=== PATIENT | male | born 1965 | race Caucasian/White ===

== ENCOUNTER 2017-01-30 20:29 | Emergency (ER) | payer OTHER ==
[2017-01-30] MEDS ORDERED: cloNIDine HCL 0.1 MG TAB PO STA (20:48)
--- NOTE | 2017-01-30 20:55 | ED ---
General Adult HPI - General Source: patient, family, RN notes reviewed Mode of arrival: ambulatory Limitations: no limitations <Noble Jaime - Last Filed: 01/30/17 20:52> <Getachew Fields - Last Filed: 01/30/17 21:23> - General Chief complaint: Headache Stated complaint: HBP Time Seen by Provider: 01/30/17 20:37 - History of Present Illness Initial comments: Chief complaint and history of present illness this is a 51-year-old male here to complaints of elevated blood pressure. At home was 158 over 1 await. Here was 186/92. Patient reports she does not have high blood pressure and then having mild headaches on again off again for the past week. 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 Otherwise no complaints of any neuro deficits or chest pain or palpitations. (Noble Jaime) - Related Data Home Medications Medication Instructions Recorded Confirmed metFORMIN HCL 1 tab PO DAILY 01/30/17 01/30/17 Previous Rx's Medication Instructions Recorded Lisinopril [Zestril] 5 mg PO DAILY #15 tab 01/30/17 Allergies Allergy/AdvReac Type Severity Reaction Status Date / Time No Known Allergies Allergy Verified 01/30/17 20:31 Review of Systems ROS Other: All systems not noted in ROS Statement are negative. <Noble Jaime - Last Filed: 01/30/17 20:52> ROS Other: All systems not noted in ROS Statement are negative. <Getachew Fields - Last Filed: 01/30/17 21:23> ROS Statement: Those systems with pertinent positive or pertinent negative responses have been documented in the HPI. Review of systems not complaining of visual acuity changes or blurred vision. Mild headache that comes and goes. No stiff neck no chest pain no shortness of breath no GI/ problems. No nausea no vomiting no neuro deficits. All systems were reviewed. Past medical problems significant for non-insulin- dependent diabetes mellitus, surgeries appendectomy. Family history mother during surgery on her carotids. Patient denies ALLERGIES nonsmoker nondrinker. Patient weighs 300 pounds. (Noble Jaime) Past Medical History Past Medical History: Diabetes Mellitus History of Any Multi-Drug Resistant Organisms: None Reported Past Surgical History: Appendectomy Past Psychological History: No Psychological Hx Reported Smoking Status: Never smoker Past Alcohol Use History: None Reported Past Drug Use History: None Reported <Noble Jaime - Last Filed: 01/30/17 20:52> General Exam Limitations: no limitations <Noble Jaime - Last Filed: 01/30/17 20:52> <MaggiesandeepGetachew - Last Filed: 01/30/17 21:23> - General Exam Comments Initial Comments: General: The patient is awake and alert, in no distress, and does not appear acutely ill. He is on again off again headache but no nausea no vomiting no blurred vision. Vital signs show temperature 98.8 pulse 73 respiratory rate 18 pulse ox 97% room air blood pressure 186/92 Eye: Pupils are equal, round and reactive to light, extra-ocular movements are intact ; there is normal conjunctiva bilaterally. No signs of icterus. Ears, nose, mouth and throat: There are moist mucous membranes and no oral lesions. Neck: The neck is supple, there is no tenderness no anterior cervical lymphadenopathy , thyroid not enlarged. No neck pain. Cardiovascular: There is a regular rate and rhythm. No murmur, rub or gallop is appreciated. Respiratory: Lungs are clear to auscultation, respirations are non-labored, breath sounds are equal. No wheezes, stridor, rales, or rhonchi. Gastrointestinal: Soft, non-distended, non-tender abdomen without masses or organomegaly noted. There is no rebound or guarding present. No CVA tenderness. Bowel sounds are unremarkable. A she had a spot that he was concerned about when he laid over on his left side. It appears to be a left floating rib. Similar floating rib can be palpated on the right side. Back: There is no tenderness to palpation in the midline. There is no obvious deformity. No rashes noted. Musculoskeletal: Normal ROM, no tenderness, Neurological: Neurological intact no complaints of any focal or lateralizing findings. Skin: Skin is warm and dry and no rashes or lesions are noted. (Noble Jaime) Disposition <Noble Jaime - Last Filed: 01/30/17 20:52> <Getachew Fields - Last Filed: 01/30/17 21:23> Clinical Impression: Hypertension Disposition: HOME SELF-CARE Condition: Good Instructions: Hypertension (ED) Prescriptions: Lisinopril [Zestril] 5 mg PO DAILY #15 tab Referrals: Mychal Almeida DO [Primary Care Provider] - 1-2 days
[2017-01-30 21:32] VITALS: BP 129/70; PULSE 76; RESP 18; TEMP 98
== END 2017-01-30 21:31 | disposition home or self-care (01) ==
LOC: EC 20:29
DX: I10 Essential (primary) hypertension (principal); R51 Headache; E11.9 Type 2 diabetes mellitus without complications; Z79.84 Long term (current) use of oral hypoglycemic drugs
CPT/HCPCS: 99283

== ENCOUNTER → 2019-10-06 | Outpatient (CLI) | payer BC ==
--- NOTE | 2019-10-06 11:45 | XR ---
EXAMINATION TYPE: XR shoulder complete LT DATE OF EXAM: 10/06/2019 COMPARISON: NONE HISTORY: Pain TECHNIQUE: Three views are submitted. FINDINGS: The osseous structures are intact. There is no acute fracture or dislocation. The AC joint arthropa thy noted. IMPRESSION: 1. Severe AC joint arthropathy with spurring. If there is concern for rotator cuff disease correlate with MRI.
== END | disposition home or self-care (01) ==
LOC: RADXRYALE 11:28
PROVIDERS: ATTEND Physician Assistant Medical
DX: M19.012 Primary osteoarthritis, left shoulder (principal)

== ENCOUNTER → 2019-10-11 | Outpatient (CLI) | payer BC | END | disposition home or self-care (01) | LOC: RADMRIMAIN 10:23 | PROVIDERS: ATTEND Physician Assistant Medical | DX: Z53.9 Procedure and treatment not carried out, unspecified reason (principal) ==

== ENCOUNTER → 2021-02-11 | Outpatient (CLI) | payer BC ==
--- NOTE | 2021-02-11 13:04 | XR ---
Right knee HISTORY: Lateral knee pain for 1 week, right knee pain, meniscus tear 3 views of the right knee Suprapatellar increased density suggests small joint effusion. There is tricompartmental marginal spu rring, joint space loss. Alignment and bone mineralization are maintained. No fracture or dislocation . impression: Osteoarthritis.
== END | disposition home or self-care (01) ==
LOC: RADXRYALE 10:29
PROVIDERS: ATTEND Family Medicine
DX: M17.11 Unilateral primary osteoarthritis, right knee (principal)

== ENCOUNTER 2021-08-11 18:23 | Observation (INO) | payer BC ==
[2021-08-11 20:30] LABS: Basophils % (A) 0 %; Eosinophils # (A) 0.3 k/uL (0-0.7); Eosinophils % (A) 2 %; HCT 44.6 % (39.0-53.0); HGB 14.7 gm/dL (13.0-17.5); Lymphocytes # (A) 2.4 k/uL (1.0-4.8); Lymphocytes % (A) 20 %; MCH 28.8 pg (25.0-35.0); MCV 87.3 fL (80.0-100.0); Mean Platelet Volume 8.5; Monocytes # (A) 0.7 k/uL (0-1.0); Monocytes % (A) 6 %; Neutrophils # (A) 8.5 k/uL (1.3-7.7); Neutrophils % (A) 71 %; Platelet Count 296 k/uL (150-450); RBC 5.11 m/uL (4.30-5.90); RDW 13.1 % (11.5-15.5)
[2021-08-11 20:38] LABS: Amorphous Sediment,Urine Rare /hpf; Appearance,Urine Turbid (Clear); Bacteria,Urine Rare /hpf; Bilirubin,Urine 1+ (Negative); Blood,Urine Negative (Negative); Color,Urine Dark Yellow; Glucose,Urine (UA) 1+ (Negative); Hyaline Casts,Urine 210 /lpf (0-2); Ketones,Urine 1+ (Negative); Leukocyte Esterase,Urine Trace (Negative); Mucus,Urine Many /hpf; Nitrite,Urine Negative (Negative); PH, Urine 5.5 (5.0-8.0); Protein,Urine 3+ (Negative); RBC,Urine 4 /hpf (0-5); Specific Gravity,Urine 1.029 (1.001-1.035); Squamous Epithelial Cell,Urine 12 /hpf (0-4); WBC,Urine 12 /hpf (0-5)
[2021-08-11 20:43] LABS: Albumin 4.3 g/dL (3.5-5.0); Calcium 9.8 mg/dL (8.4-10.2); Total Bilirubin 0.6 mg/dL (0.2-1.3); Total Protein 7.6 g/dL (6.3-8.2)
--- NOTE | 2021-08-11 22:35 | ED ---
General Adult HPI - General Chief complaint: Abdominal Pain Stated complaint: COVID+ Time Seen by Provider: 08/11/21 21:51 Source: patient, EMS, RN notes reviewed, old records reviewed Mode of arrival: EMS Limitations: no limitations - History of Present Illness Initial comments: 56-year-old male presenting for evaluation of abdominal discomfort. Patient states that he recently tested positive for coronavirus. He tested positive on August 06. He has no cough or dyspnea. He was not vaccinated against coronavirus. He's also states that he started a new diabetic medication which is an injectable and states that he has had this leg abdominal pain since the onset of this new medication. No fever. Pain is predominantly epigastric and right upper quadrant. He states it is improved with drinking or eating. Additionally the patient had just lost his fiance to coronavirus and is been under a great deal of stress. Patient had contacted his primary care physician who had requested that the patient presented to the emergency department for evaluation of epigastric pain and concern for a cardiac cause of his pain. - Related Data Home Medications Medication Instructions Recorded Confirmed Ascorbic Acid [Vitamin C] 1,000 mg PO DAILY 08/12/21 08/12/21 Pioglitazone [Actos] 45 mg PO DAILY 08/12/21 08/12/21 Semaglutide [Ozempic] 1 mg SQ WE 08/12/21 08/12/21 lisinopriL [Zestril] 20 mg PO BID 08/12/21 08/12/21 metFORMIN HCL [Glucophage] 1,000 mg PO BID 08/12/21 08/12/21 Previous Rx's Medication Instructions Recorded Cephalexin [Keflex] 500 mg PO Q12HR #14 cap 08/11/21 Omeprazole [PriLOSEC] 20 mg PO AC-BID 30 Days #60 cap 08/11/21 Allergies Allergy/AdvReac Type Severity Reaction Status Date / Time No Known Allergies Allergy Verified 08/12/21 07:15 Review of Systems ROS Statement: Those systems with pertinent positive or pertinent negative responses have been documented in the HPI. ROS Other: All systems not noted in ROS Statement are negative. Past Medical History Past Medical History: Diabetes Mellitus History of Any Multi-Drug Resistant Organisms: None Reported Past Surgical History: Appendectomy Past Psychological History: No Psychological Hx Reported Smoking Status: Never smoker Past Alcohol Use History: None Reported Past Drug Use History: None Reported General Exam Limitations: no limitations General appearance: alert, in no apparent distress Head exam: Present: atraumatic, normocephalic Eye exam: Present: normal appearance, PERRL ENT exam: Present: normal exam Neck exam: Present: normal inspection. Absent: tenderness, meningismus Respiratory exam: Present: normal lung sounds bilaterally. Absent: respiratory distress, wheezes Cardiovascular Exam: Present: regular rate, normal rhythm GI/Abdominal exam: Present: soft. Absent: distended, tenderness, guarding, rebound Extremities exam: Present: normal inspection, normal capillary refill. Absent: pedal edema Neurological exam: Present: alert, oriented X3, CN II-XII intact Psychiatric exam: Present: normal affect, normal mood Skin exam: Present: warm, dry, intact. Absent: cyanosis, diaphoretic Course Vital Signs 08/11/21 08/11/21 08/12/21 19:59 21:56 01:12 Temperature 98.2 F Pulse Rate 89 82 73 Respiratory 18 18 18 Rate Blood Pressure 156/81 131/82 120/67 O2 Sat by Pulse 96 96 98 Oximetry 08/12/21 08/12/21 08/12/21 02:30 06:00 07:05 Temperature Pulse Rate 81 64 69 Respiratory 18 18 18 Rate Blood Pressure 126/66 130/79 130/72 O2 Sat by Pulse 95 96 95 Oximetry 08/12/21 08/12/21 09:27 18:53 Temperature 98.7 F Pulse Rate 80 74 Respiratory 16 16 Rate Blood Pressure 130/83 136/74 O2 Sat by Pulse 96 95 Oximetry - Reevaluation(s) Reevaluation #1: 08/11/21 22:56 Patient was sent in by his primary care for evaluation. EKG Findings - EKG Comments: EKG Findings:: EKG: Normal sinus rhythm, right bundle-branch block rate of 76, OR interval 154, QRS duration 144, QTC 477, no ST segment elevation, no old for comparison. Medical Decision Making - Medical Decision Making 56-year-old male presenting with chief complaint of epigastric abdominal pain Patient is nontender on exam no rebound or guarding, he's had no vomiting or diarrhea. No fever. He is Flores virus positive. Patient does not have any chest pain or dyspnea. I did recommend that the patient receive antibiotic infusion this is administered in the emergency department. He has a mild leukocytosis, stable hemoglobin, normal electrolytes, normal liver enzymes. Urinalysis is showing some leukocyte Estrace and bacteria this is a contaminated specimen, culture pending. Patient's EKG shows a right bundle branch block without old for comparison. Given the recommendation by his primary care physician for evaluation of this epigastric pain and the possibility of anginal equivalent I did perform troponin testing which was minimally elevated at 0.047. Patient does not have any active chest pain. This level will be trended. He will be kept in observation awaiting trended troponin level. - Lab Data Result diagrams: 08/11/21 20:10 08/11/21 20:10 Lab Results 08/11/21 08/11/21 08/11/21 Range/Units 20:10 20:10 20:10 WBC 12.0 H (3.8-10.6) k/uL RBC 5.11 (4.30-5.90) m/uL Hgb 14.7 (13.0-17.5) gm/dL Hct 44.6 (39.0-53.0) % MCV 87.3 (80.0-100.0) fL MCH 28.8 (25.0-35.0) pg MCHC 33.0 (31.0-37.0) g/dL RDW 13.1 (11.5-15.5) % Plt Count 296 (150-450) k/uL MPV 8.5 Neutrophils % 71 % Lymphocytes % 20 % Monocytes % 6 % Eosinophils % 2 % Basophils % 0 % Neutrophils # 8.5 H (1.3-7.7) k/uL Lymphocytes # 2.4 (1.0-4.8) k/uL Monocytes # 0.7 (0-1.0) k/uL Eosinophils # 0.3 (0-0.7) k/uL Basophils # 0.0 (0-0.2) k/uL Sodium 141 (137-145) mmol/L Potassium 4.0 (3.5-5.1) mmol/L Chloride 103 (98-107) mmol/L Carbon Dioxide 25 (22-30) mmol/L Anion Gap 13 mmol/L BUN 18 (9-20) mg/dL Creatinine 1.25 (0.66-1.25) mg/dL Est GFR (CKD-EPI)AfAm 75 (>60 ml/min/1.73 sqM) Est GFR (CKD-EPI)NonAf 65 (>60 ml/min/1.73 sqM) Glucose 140 H (74-99) mg/dL Calcium 9.8 (8.4-10.2) mg/dL Total Bilirubin 0.6 (0.2-1.3) mg/dL AST 27 (17-59) U/L ALT 23 (4-49) U/L Alkaline Phosphatase 52 (38-126) U/L Troponin I (0.000-0.034) ng/mL Total Protein 7.6 (6.3-8.2) g/dL Albumin 4.3 (3.5-5.0) g/dL Urine Color Dark Yellow Urine Appearance Turbid (Clear) Urine pH 5.5 (5.0-8.0) Ur Specific [place] 1.029 (1.001-1.035) Urine Protein 3+ H (Negative) Urine Glucose (UA) 1+ H (Negative) Urine Ketones 1+ H (Negative) Urine Blood Negative (Negative) Urine Nitrite Negative (Negative) Urine Bilirubin 1+ H (Negative) Urine Urobilinogen 3.0 (<2.0) mg/dL Ur Leukocyte Esterase Trace H (Negative) Urine RBC 4 (0-5) /hpf Urine WBC 12 H (0-5) /hpf Urine WBC Clumps Rare H (None) /hpf Ur Squamous Epith Cells 12 H (0-4) /hpf Amorphous Sediment Rare H (None) /hpf Urine Bacteria Rare H (None) /hpf Hyaline Casts 210 H (0-2) /lpf Urine Mucus Many H (None) /hpf 08/11/21 Range/Units 20:10 WBC (3.8-10.6) k/uL RBC (4.30-5.90) m/uL Hgb (13.0-17.5) gm/dL Hct (39.0-53.0) % MCV (80.0-100.0) fL MCH (25.0-35.0) pg MCHC (31.0-37.0) g/dL RDW (11.5-15.5) % Plt Count (150-450) k/uL MPV Neutrophils % % Lymphocytes % % Monocytes % % Eosinophils % % Basophils % % Neutrophils # (1.3-7.7) k/uL Lymphocytes # (1.0-4.8) k/uL Monocytes # (0-1.0) k/uL Eosinophils # (0-0.7) k/uL Basophils # (0-0.2) k/uL Sodium (137-145) mmol/L Potassium (3.5-5.1) mmol/L Chloride (98-107) mmol/L Carbon Dioxide (22-30) mmol/L Anion Gap mmol/L BUN (9-20) mg/dL Creatinine (0.66-1.25) mg/dL Est GFR (CKD-EPI)AfAm (>60 ml/min/1.73 sqM) Est GFR (CKD-EPI)NonAf (>60 ml/min/1.73 sqM) Glucose (74-99) mg/dL Calcium (8.4-10.2) mg/dL Total Bilirubin (0.2-1.3) mg/dL AST (17-59) U/L ALT (4-49) U/L Alkaline Phosphatase (38-126) U/L Troponin I 0.047 H* (0.000-0.034) ng/mL Total Protein (6.3-8.2) g/dL Albumin (3.5-5.0) g/dL Urine Color Urine Appearance (Clear) Urine pH (5.0-8.0) Ur Specific [place] (1.001-1.035) Urine Protein (Negative) Urine Glucose (UA) (Negative) Urine Ketones (Negative) Urine Blood (Negative) Urine Nitrite (Negative) Urine Bilirubin (Negative) Urine Urobilinogen (<2.0) mg/dL Ur Leukocyte Esterase (Negative) Urine RBC (0-5) /hpf Urine WBC (0-5) /hpf Urine WBC Clumps (None) /hpf Ur Squamous Epith Cells (0-4) /hpf Amorphous Sediment (None) /hpf Urine Bacteria (None) /hpf Hyaline Casts (0-2) /lpf Urine Mucus (None) /hpf Disposition Clinical Impression: COVID-19, Elevated troponin I level Disposition: Left Against Medical Advice Condition: Stable Is patient prescribed a controlled substance at d/c from ED?: No Decision to Admit Reason: Admit from EC Decision Date: 08/11/21 Decision Time: 23:42
[2021-08-11] MEDS ORDERED: SODIUM CHLORIDE 0.9% 500 ML 500 ML IV ONE (23:00)
[2021-08-11] MEDS ORDERED: SODIUM CHLORIDE 0.9% 50 ML IVPB ONE (23:15)
[2021-08-11] MEDS ORDERED: ASPIRIN 325 MG TAB PO STA (23:39)
[2021-08-11] MEDS ORDERED: NALOXONE 0.4 MG/ML 1 ML VIAL IV PRN (23:40)
[2021-08-11] MEDS ORDERED: ACETAMINOPHEN TAB 325 MG TAB PO PRN (23:40)
[2021-08-11] MEDS ORDERED: SODIUM CHLORIDE 0.9% 1,000 ML IV SCH (23:45)
[2021-08-11] MEDS ORDERED: BAMLANIVIMAB (EUA) 700 MG, ETESEVIMAB (EUA) 1,400 MG in SODIUM CHLORIDE 0.9% 50 ML IVPB ONE (23:45)
[2021-08-12] MEDS ORDERED: lisinopriL 20 MG TAB PO SCH (09:00)
[2021-08-12] MEDS ORDERED: ASPIRIN 81 MG PO SCH (09:15)
[2021-08-12 09:27] VITALS: RESP 16
--- NOTE | 2021-08-12 12:03 | P.CRDCN ---
History of Present Illness Consult date: 08/12/21 History of present illness: CHIEF COMPLAINT: elevated troponin HISTORY OF PRESENT ILLNESS: This is a 56 year old male with a past medical history significant for diabetes and hypertension. 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 We have been asked to see the patient in consultation for abnormal troponins. The patient presented to the hospital with a chief complaint of abdominal pain after starting a new diabetes medication. He was recently diagnosed with Covid. Patients vital signs are stable. He is on room air with oxygen saturations greater than 92%. Blood pressure 130/83. Telemetry reveals sinus rhythm with heart rate in the 80s. EKG reveals sinus mechanism with right bundle-branch block. Current home cardiac medications include lisinopril 20 mg twice a day. REVIEW OF SYSTEMS: Thorough review of systems not completed secondary to limited evaluation/examination due to Covid19 PHYSICAL EXAM: Thorough physical exam not completed secondary to limited evaluation/examination due to Covid19 ASSESSMENT: Acute Covid 19 Abnormal troponins, not suggestive of ACS Abdominal pain Hypertension Diabetes PLAN: Obtain 2D echo to assess cardiac structure and function Resume home cardiac medications Aspirin 81 mg daily Patient may follow up on an outpatient basis after he recovers from Covid Nurse practitioner note has been reviewed by physician. Signing provider agrees with the documented findings, assessment, and plan of care. Past Medical History Past Medical History: Diabetes Mellitus History of Any Multi-Drug Resistant Organisms: None Reported Past Surgical History: Appendectomy Past Psychological History: No Psychological Hx Reported Smoking Status: Never smoker Past Alcohol Use History: None Reported Past Drug Use History: None Reported Medications and Allergies Home Medications Medication Instructions Recorded Confirmed Type Cephalexin [Keflex] 500 mg PO Q12HR #14 cap 08/11/21 Rx Omeprazole [PriLOSEC] 20 mg PO AC-BID 30 Days #60 cap 08/11/21 Rx Ascorbic Acid [Vitamin C] 1,000 mg PO DAILY 08/12/21 08/12/21 History Pioglitazone [Actos] 45 mg PO DAILY 08/12/21 08/12/21 History Semaglutide [Ozempic] 1 mg SQ WE 08/12/21 08/12/21 History lisinopriL [Zestril] 20 mg PO BID 08/12/21 08/12/21 History metFORMIN HCL [Glucophage] 1,000 mg PO BID 08/12/21 08/12/21 History Allergies Allergy/AdvReac Type Severity Reaction Status Date / Time No Known Allergies Allergy Verified 08/12/21 07:15 Physical Exam Vitals: Vital Signs Temp Pulse Resp BP Pulse Ox 08/12/21 09:27 80 16 130/83 96 08/12/21 07:05 69 18 130/72 95 08/12/21 06:00 64 18 130/79 96 08/12/21 02:30 81 18 126/66 95 08/12/21 01:12 73 18 120/67 98 08/11/21 21:56 82 18 131/82 96 08/11/21 19:59 98.2 F 89 18 156/81 96 Intake and Output 08/11/21 08/12/21 08/12/21 22:59 06:59 14:59 Other: Weight 142.882 kg Results 08/11/21 20:10 08/11/21 20:10 Cardiac Enzymes 08/11/21 08/11/21 08/12/21 Range/Units 20:10 20:10 00:19 AST 27 (17-59) U/L Troponin I 0.047 H* 0.048 H* (0.000-0.034) ng/mL 08/12/21 Range/Units 02:57 AST (17-59) U/L Troponin I 0.052 H* (0.000-0.034) ng/mL CBC 08/11/21 Range/Units 20:10 WBC 12.0 H (3.8-10.6) k/uL RBC 5.11 (4.30-5.90) m/uL Hgb 14.7 (13.0-17.5) gm/dL Hct 44.6 (39.0-53.0) % Plt Count 296 (150-450) k/uL Comprehensive Metabolic Panel 08/11/21 Range/Units 20:10 Sodium 141 (137-145) mmol/L Potassium 4.0 (3.5-5.1) mmol/L Chloride 103 (98-107) mmol/L Carbon Dioxide 25 (22-30) mmol/L BUN 18 (9-20) mg/dL Creatinine 1.25 (0.66-1.25) mg/dL Glucose 140 H (74-99) mg/dL Calcium 9.8 (8.4-10.2) mg/dL AST 27 (17-59) U/L ALT 23 (4-49) U/L Alkaline Phosphatase 52 (38-126) U/L Total Protein 7.6 (6.3-8.2) g/dL Albumin 4.3 (3.5-5.0) g/dL Current Medications Generic Name Dose Route Start Last Admin Trade Name Freq PRN Reason Stop Dose Admin Acetaminophen 650 mg 08/11/21 23:40 Acetaminophen Tab 325 Mg Tab PO Q6HR PRN Mild Pain or Fever > 100.5 Aspirin 81 mg 08/12/21 09:15 08/12/21 09:26 Aspirin 81 Mg PO 81 mg DAILY WIL Administration Sodium Chloride 1,000 mls @ 75 mls/hr 08/11/21 23:45 08/12/21 00:40 Saline 0.9% IV 75 mls/hr .[id number] WIL Administration Lisinopril 20 mg 08/12/21 09:00 08/12/21 09:26 Lisinopril 20 Mg Tab PO 20 mg BID WIL Administration Naloxone HCl 0.2 mg 08/11/21 23:40 Naloxone 0.4 Mg/Ml 1 Ml Vial IV Q2M PRN Opioid Reversal Intake and Output 08/11/21 08/12/21 08/12/21 22:59 06:59 14:59 Other: Weight 142.882 kg 08/11/21 20:10 08/11/21 20:10
[2021-08-12] MEDS ORDERED: HYDROcodone/APAP 5-325MG 1 EACH TAB PO PRN (14:50)
[2021-08-12] MEDS ORDERED: CHOLECALCIFEROL 25 MCG (1000 IU) TABLET PO SCH (15:00)
[2021-08-12] MEDS ORDERED: ZINC SULFATE 220 MG CAP PO SCH (15:00)
[2021-08-12] MEDS ORDERED: ENOXAPARIN 40 MG/0.4 ML SYRINGE SQ SCH (15:00)
[2021-08-12] MEDS ORDERED: PANTOPRAZOLE 40 MG TABLET PO SCH (15:00)
--- NOTE | 2021-08-12 15:41 | HP ---
HISTORY AND PHYSICAL DATE OF SERVICE: 08/12/2021 CHIEF COMPLAINT: Abdominal pain. HISTORY OF PRESENT ILLNESS: This 56-year-old gentleman with a past medical history of multiple medical problems, including diabetes mellitus, history of appendectomy, being followed by Dr. Mychal Almeida in [facility] in the outpatient setting, was recently tested to be positive for COVID-19. The patient was not vaccinated. The patient was started on a new injectable diabetic medication recently. Now the patient has diffuse abdominal pain, and the patient was admitted for further evaluation and treatment. The pain is mostly situated in the epigastric and right upper quadrant. It has not much aggravating or relieving factors. After admission, white count was found to be 12. There is no history of any diarrhea. The UA showed multiple abnormalities and troponin was found to be 0.047, 0.048, and 0.052. The EKG which was reviewed personally showed complete right bundle branch block, also, with non-progression of the R-wave with some QS pattern. A 2D echo with Doppler has been ordered. There is no history of any fever, rigor or chills at this time. PAST MEDICAL HISTORY: History of diabetes mellitus, type 2, history of appendectomy. MEDICATIONS PRIOR TO ADMISSION: Vitamin C, Glucophage, Zestril, Ozempic, Actos, Prilosec, Keflex. Doses are reviewed. ALLERGIES: NONE. FAMILY HISTORY: No history of heart disease or strokes in the family. SOCIAL HISTORY: No history of smoking. No history of alcohol intake. 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 REVIEW OF SYSTEMS: ENT: No diminished hearing. No diminished vision. CARDIOVASCULAR SYSTEM: No angina, palpitations. RESPIRATORY SYSTEM: No cough, hemoptysis. GI: As mentioned earlier. : No dysuria. NERVOUS SYSTEM: No numbness, weakness. ALLERGY/IMMUNOLOGY: No asthma or hay fever. MUSCULOSKELETAL: As mentioned earlier. HEMATOLOGY/ONCOLOGY: No history of anemia. ENDOCRINE: As mentioned earlier. CONSTITUTIONAL: As mentioned earlier. DERMATOLOGY: Negative. RHEUMATOLOGY: Negative. PSYCHIATRY: As mentioned earlier. PHYSICAL EXAMINATION: Patient alert and oriented x3. Patient is 69, blood pressure 130/72, respiration 18, temperature normal, pulse ox 94% on room air. HEENT: Conjunctivae normal. Oral mucosa moist. NECK: No jugular venous distention. No carotid bruit. No lymph node enlargement. CARDIOVASCULAR: S1, S2 muffled. RESPIRATION: Breath sounds diminished at the bases. No rhonchi. No crackles. ABDOMEN: Soft, obese. Mild diffuse discomfort. No guarding. No rigidity. No mass palpable. Bowel sounds present. LEGS: No edema. No swelling. NERVOUS SYSTEM: Higher functions as mentioned earlier. Moves all 4 limbs. No focal motor or sensory deficit. LYMPHATICS: No lymph node palpable in neck, axillae or groin. SKIN: No ulcer, rash, bleeding. JOINTS: No active deforming arthropathy. LABS: WBC 12, hemoglobin 14.7. Sodium 141, potassium 4, glucose 140. Troponin 0.047. UA noted. ASSESSMENT: 1. Elevated troponin; rule out acute myocardial infarction. 2. Troponin 0.047, 0.048, 0.052. 3. Acute COVID-19 infection. 4. Abdominal pain of unknown undetermined etiology, possibly related to COVID-19. 5. Rule out urinary tract infection. 6. Diabetes mellitus, type 2. 7. Appendectomy. 8. Obesity with body mass index of 45.2. RECOMMENDATIONS AND DISCUSSION: In this 56-year-old gentleman who presented with multiple complex medical issues, we will monitor the patient closely, continue the current medications, continue symptomatic treatment. I would recommend cardiology consultation and evaluate closely. The exact etiology of elevated troponins is unclear at this time; could be related to COVID-19. I would also recommend D-dimer, and if the D-dimer is positive, a CT angio chest also to rule out the possibility of pulmonary embolism. Otherwise, 2D echo with doppler has been ordered. The patient is saturating well. Monitor blood sugars closely. Will check the lipids as well. Symptomatic treatment also will be provided. Prognosis guarded. Closely follow with Cardiology. Discussed with the patient, who understands and agrees. A copy of this dictation is being forwarded to Dr. Almeida, who is the primary physician. MMODL / IJN: [id number] /
[2021-08-12 17:49] LABS: C Reactive Protein 0.7 mg/dL (<1.0)
[2021-08-12 18:55] VITALS: BP 136/74; PULSE 74; TEMP 98.7
--- NOTE | 2021-08-13 08:00 | ECHOF ---
Referral Reason:LV function, + covid MEASUREMENTS -------- HEIGHT: 177.8 cm WEIGHT: 142.9 kg BP: 130/83 RVIDd: 4.1 cm (< 3.3) IVSd: 1.4 cm (0.6 - 1.1) LVIDd: 4.7 cm (3.9 - 5.3) LVPWd: 1.4 cm (0.6 - 1.1) IVSs: 1.8 cm LVIDs: 3.1 cm LVPWs: 2.1 cm Ao Diam: 3.3 cm (2.0 - 3.7) AV Cusp: 2.6 cm (1.5 - 2.6) LA Diam: 3.2 cm (2.7 - 3.8) MV EXCURSION: 16.486 mm (> 18.000) MV EF SLOPE: 94 mm/s (70 - 150) EPSS: 0.9 cm MV E Ishmael: 0.87 m/s MV DecT: 156 ms MV A Ishmael: 0.67 m/s MV E/A Ratio: 1.31 RAP: 5.00 mmHg RVSP: 17.37 mmHg FINDINGS -------- Sinus rhythm. This was a technically difficult study with suboptimal views. The left ventricular size is normal. There is moderate concentric left ventricular hypertrophy. O verall left ventricular systolic function is low-normal with, an EF between 50 - 55 %. The right ventricle is moderately enlarged. The left atrial size is normal. The right atrium was not well visualized. xx ml of Lumason was utilized for enhancement of images. The aortic valve was not well visualized. There is no evidence of aortic regurgitation. There is no evidence of aortic stenosis. The mitral valve was not well visualized. The tricuspid valve was not well visualized. Mild tricuspid regurgitation present. There is no ev idence of pulmonary hypertension. The right ventricular systolic pressure, as measured by Doppler, is 17.37mmHg. The pulmonic valve was not well visualized. The aortic root size is normal. IVC Not well visulized. There is no pericardial effusion. CONCLUSIONS -------- 1. There is moderate concentric left ventricular hypertrophy. 2. Overall left ventricular systolic function is low-normal with, an EF between 50 - 55 %. 3. The right ventricle is moderately enlarged. 4. The aortic valve was not well visualized. 5. Mild tricuspid regurgitation present. 6. There is no pericardial effusion. FINISHER BRUSH: Fartun Gutierrez RDCS
[2021-08-13] MEDS ORDERED: PIOGLITAZONE 45 MG TAB PO SCH (09:00)
[2021-08-13] MEDS ORDERED: ASCORBIC ACID 500 MG TAB PO SCH (09:00)
--- NOTE | 2021-08-14 21:28 | DS ---
DISCHARGE SUMMARY FINAL DIAGNOSES: 1. Elevated troponin. Rule out acute myocardial infarction. 2. Troponin 0.047, 0.048, 0.052. 3. Acute COVID-19 infection. 4. Abdominal pain of undetermined etiology, possibly related to COVID-19. 5. Rule out urinary tract infection. 6. Diabetes mellitus, type 2. 7. Appendectomy. 8. Obesity with body mass index of 45.2. DISCHARGE DISPOSITION: The patient left the hospital AGAINST MEDICAL ADVICE. HISTORY OF PRESENT ILLNESS: This 56-year-old gentleman with a past medical history of multiple medical problems had elevated troponin and multiple complications and issues related possibly to acute COVID- 19 infection. However, the patient was not willing to stay and left the hospital AGAINST MEDICAL ADVICE. Prognosis remained extremely guarded throughout the hospital stay. Please refer to the staff notes and history and physical and ER notes and other progress notes for further details. MMODL / IJN: [id number] /
== END 2021-08-12 21:10 | disposition left against medical advice (07) ==
LOC: EC 18:23 → 3SCARD 23:42 → 4SSUR 08-12 20:29
PROVIDERS: ADMIT Hospitalist; ATTEND Hospitalist
DX: U07.1 COVID-19 (principal); R77.8 Other specified abnormalities of plasma proteins; R10.11 Right upper quadrant pain; R10.13 Epigastric pain; D72.829 Elevated white blood cell count, unspecified; E11.9 Type 2 diabetes mellitus without complications; I10 Essential (primary) hypertension; I45.10 Unspecified right bundle-branch block; E66.9 Obesity, unspecified; Z68.42 Body mass index [BMI] 45.0-49.9, adult; Z53.29 Procedure and treatment not carried out because of patient's decision for other reasons; Z63.4 Disappearance and death of family member; Z79.84 Long term (current) use of oral hypoglycemic drugs; Z79.899 Other long term (current) drug therapy; Z90.49 Acquired absence of other specified parts of digestive tract
CPT/HCPCS: 96360; 96372; 99285; 36415; 93005; 93306; 85379; 80053; 85652; 83615; 84484 ×2; 85025; 86140; 81001; 87086; G0378 ×2; M0239; J1650; Q9950; J3490; 96361